=== PATIENT | male | born 1980 | race Caucasian/White ===

== ENCOUNTER 2022-09-11 19:40 | Emergency (ER) | payer BC ==
[2022-09-11 20:08] LABS: BASOPHILS # (AUTO) 0.1 10^3/uL (0.0-0.1); BASOPHILS % (AUTO) 0.6 %; EOSINOPHILS # (AUTO) 0.2 10^3/uL (0.0-0.7); EOSINOPHILS % (AUTO) 2.1 %; HCT - HEMATOCRIT 50.9 % (42.0-52.0); HGB - HEMOGLOBIN 17.6 g/dL (14.0-18.0); LYMPHOCYTES # (AUTO) 1.6 10^3/uL (1.5-3.5); LYMPHOCYTES % (AUTO) 17.2 %; MEAN CORPUSCULAR HEMOGLOBIN 30.7 pg (27.0-31.0); MEAN CORPUSCULAR HGB CONC 34.6 g/dL (32.0-36.0); MEAN CORPUSCULAR VOLUME 88.8 fL (80.0-94.0); MEAN PLATELET VOLUME 9.9 fL (7.4-11.4); MONOCYTES # (AUTO) 0.7 10^3/uL (0.0-1.0); NEUTROPHILS # (AUTO) 6.7 10^3/uL (1.5-6.6); NEUTROPHILS % (AUTO) 72.9 %; PLT - PLATELET COUNT 292 10^3/uL (130-450); RED BLOOD COUNT 5.73 10^6/uL (4.70-6.10); RED CELL DISTRIBUTION WIDTH 13.1 % (12.0-15.0); WHITE BLOOD COUNT 9.3 x10^3/uL (4.8-10.8)
--- NOTE | 2022-09-11 20:13 | XRAY Report ---
PROCEDURE: Chest 1 View X-Ray INDICATIONS: Chest Pain TECHNIQUE: One view of the chest was acquired. COMPARISON: None. FINDINGS: Surgical changes and devices: Post-ORIF changes in right clavicular shaft are seen. Lungs and pleura: No pleural effusions or pneumothorax. Lungs are clear. Mediastinum: Mediastinal contours appear normal. Heart size is normal. Bones and chest wall: No suspicious bony lesions. Overlying soft tissues appear unremarkable. IMPRESSION: No acute cardiopulmonary process. Reviewed by: Diego Klein MD on 09/11/2022 8:12 PM PDT Approved by: Diego Klein MD on 09/11/2022 8:12 PM PDT Station ID: [id number]
[2022-09-11 20:34] LABS: ALBUMIN 4.3 g/dL (3.2-5.5); ALBUMIN/GLOBULIN RATIO 1.5 (1.0-2.2); BILIRUBIN,TOTAL 1.3 mg/dL (0.2-1.0); CALCIUM 9.8 mg/dL (8.5-10.3); POTASSIUM 4.3 mmol/L (3.5-5.0); TOTAL PROTEIN 7.2 g/dL (6.7-8.2)
[2022-09-11] MEDS ORDERED: ALPRAZolam 0.25 MG TABLET PO STA (20:34)
[2022-09-11] MEDS ORDERED: busPIRone 5 MG TABLET PO ONE (21:00)
--- NOTE | 2022-09-11 21:08 | ED Physician Documentation ---
PD HPI CHEST PAIN - Stated complaint Stated Complaint: CHEST PX/ANXIETY - Chief complaint Chief Complaint: Cardiac - History obtained from History obtained from: Patient - Additional information Additional information: The patient comes to the emergency department chief complaint of anxiety and chest tightness. He states its been going on on and off for about the past year but that he gets episodes where things seem to get worse. He states this usually is when he is not able to sleep at night. He states he will try to sleep and then he will just keep waking up out of breath as if he has been h olding his breath. States he feels as though he is constantly having an adrenaline bai. Patient states he is under a lot of stress at his job. 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 His home base is in [place]. He states he will be here about another week and then he is supposed to go back to [place] he thinks. He is supposed to go to [place] after that. He states he has not really had the opportunity to establish with a primary care physician because he is always gone. He lives in the [facility]. The patient states that he has not had any symptoms with exertion. He states also that when he is at work, he does not really get any symptoms at all because he is busy. However, and when he is off work and especially when he is just by himself, he begins to feel anxious. At this time, he will feel as though his heart rate is going up and his chest gets tight. He sometimes gets numbness in his arms. The patient states that he starts to feel overwhelmed with everything that is stressing him out and that he will have symptoms like that on and off for a couple of days. Once he is able to get sleep again, and the symptoms seem to improve. Patient does have a significant other who lives in [place] and he cites some relationship stress as well. The patient has a history of alcoholism and heavy smoking although he has cut back on both alcohol and smoking. He states he has a beer and a cigarette maybe once a week but that he is very involved with [employer] Anonymous and this helps him a lot. The patient states that he has a history of pretension and was on lisinopril for this but he self DC'd for unclear reasons. No history of diabetes or known heart issues. His only family history of coronary artery disease is an uncle who at 42 of a "massive heart attack". He does note that his uncle had diabetes, hypertension, and was a heavy smoker and drinker and was chronically under a lot of stress with his job. Patient denies any shortness of breath with exertion. He does state that when he gets really anxious sometimes he will start vomiting. No other complaints at this time. PD PAST MEDICAL HISTORY - Past Medical History Past Medical History: Yes Cardiovascular: Hypertension Respiratory: None Neuro: None Endocrine/Autoimmune: None GI: None : None HEENT: None Psych: Anxiety Musculoskeletal: None Derm: None - Past Surgical History Past Surgical History: Yes General: Other Ortho: Other - Present Medications Home Medications: Ambulatory Orders Medication Instructions Recorded Confirmed busPIRone [Buspar] 10 mg PO BID #120 tablet 09/11/22 - Allergies Allergies/Adverse Reactions: Allergies Allergy/AdvReac Type Severity Reaction Status Date / Time No Known Drug Allergies Allergy Verified 09/11/22 19:51 - Social History Does the pt smoke?: Yes Smoking Status: Current every day smoker Does the pt drink ETOH?: Yes Does the pt have substance abuse?: No - Immunizations Immunizations: TDAP >10years/unknown - POLST Patient has POLST: No PD ED PE NORMAL - Vitals Vital signs reviewed: Yes - General General: Alert and oriented X 3, Well developed/nourished, Other (No distress but the patient does appear mildly anxious.) - HEENT HEENT: Atraumatic, PERRL, EOMI, Moist mucous membranes - Neck Neck: Supple, no meningeal sign - Cardiac Cardiac: RRR, No murmur, Strong equal pulses - Respiratory Respiratory: No respiratory distress, Clear bilaterally - Abdomen Abdomen: Soft, Non tender, Non distended - Derm Derm: Normal color, Warm and dry, No rash - Extremities Extremities: No deformity, No edema, No calf tenderness / cord - Neuro Neuro: Alert and oriented X 3 - Psych Psych: Normal mood, Normal affect Results - Vitals Vitals: Vital Signs - 24 hr 09/11/22 09/11/22 09/11/22 19:48 21:12 22:17 Temperature 36.4 C L 36.6 C Heart Rate 82 70 80 Respiratory 18 15 16 Rate Blood Pressure 150/113 H 139/104 H 137/99 H O2 Saturation 96 95 95 09/11/22 09/11/22 22:46 23:38 Temperature 36.2 C L Heart Rate 85 78 Respiratory 17 19 Rate Blood Pressure 140/104 H 136/97 H O2 Saturation 96 95 Oxygen O2 Source Room air - EKG (time done) 1948 EKG releavant findings:: EKG personally interpreted by author of this note. Relevant findings are: Rate: Rate (enter#) (78) [place]: Normal Intervals: Normal GA QRS: Normal Ischemia: ST elevation c/w repol Compare to prior EKG: Old EKG unavailable Computer interpretation: Agree with computer - Labs Labs: Laboratory Tests 09/11/22 09/11/22 09/11/22 19:57 19:57 19:57 WBC 9.3 RBC 5.73 Hgb 17.6 Hct 50.9 MCV 88.8 MCH 30.7 MCHC 34.6 RDW 13.1 Plt Count 292 MPV 9.9 Neut # (Auto) 6.7 H Lymph # (Auto) 1.6 [place] # (Auto) 0.7 Eos # (Auto) 0.2 Baso # (Auto) 0.1 Absolute Nucleated RBC 0.00 Nucleated RBC % 0.0 Sodium 136 Potassium 4.3 Chloride 102 Carbon Dioxide 27 Anion Gap 7.0 BUN 10 Creatinine 1.0 Estimated GFR (MDRD) 82 L Glucose 125 H Calcium 9.8 Total Bilirubin 1.3 H AST 31 ALT 30 Alkaline Phosphatase 79 Troponin I High Sens 2.4 Total Protein 7.2 Albumin 4.3 Globulin 2.9 Albumin/Globulin Ratio 1.5 Lipase 43 09/11/22 22:01 WBC RBC Hgb Hct MCV MCH MCHC RDW Plt Count MPV Neut # (Auto) Lymph # (Auto) [place] # (Auto) Eos # (Auto) Baso # (Auto) Absolute Nucleated RBC Nucleated RBC % Sodium Potassium Chloride Carbon Dioxide Anion Gap BUN Creatinine Estimated GFR (MDRD) Glucose Calcium Total Bilirubin AST ALT Alkaline Phosphatase Troponin I High Sens < 2.3 L Total Protein Albumin Globulin Albumin/Globulin Ratio Lipase PD Medical Decision Making - ED course Complexity details: reviewed results, re-evaluated patient, considered differential, d/w patient ED course: The patient was worked up with labs, EKG, and chest x-ray. Labs were ordered and reviewed by me and included a CBC, ER abdominal panel, and troponin with repeat at 2 hours. All of these were unremarkable. The patient was feeling better after BuSpar and a very small dose of Xanax and he requested BuSpar for at home. I have given him a prescription for this. The patient is advised that it is very important that he set up primary care as soon as he gets home to [place]. He states he will only be here for another week, so it is not of much utility to refer him to primary care here. We have discussed home management of symptoms as well as the usual indications for return. Departure - Departure Disposition: Home, Self Care Clinical Impression: Anxiety Chest pain Qualifiers: Chest pain type: unspecified Qualified Code(s): R07.9 - Chest pain, unspecified Condition: Stable Instructions: ED Chest Pain Atypical Unkn Cause, ED Panic Attack Prescriptions: busPIRone [Buspar] 10 mg PO BID #120 tablet Comments: Your labs, EKG, and chest x-ray all look good. There is no evidence of heart attack or other emergent condition today. Most likely, your symptoms are due to anxiety and panic disorder, but it is very important that you establish with a primary doctor upon your soon return to [place]. You have been started on buspirone for your anxiety and a prescription for this has been electronically transmitted to the [facility] pharmacy in [place]. However, you should follow-up with primary care to be sure this is the best option for you to be on at this time. If you develop severe chest pain and shortness of breath that is unremitting with that seems in any way worse than usual, please return to the emergency department for reevaluation. Discharge Date/Time: 09/11/22 23:48
[2022-09-11 23:40] VITALS: BP 136/97
== END 2022-09-11 23:48 | disposition home or self-care (01) ==
LOC: ED 19:40
DX: F41.9 Anxiety disorder, unspecified (principal); R07.9 Chest pain, unspecified; F17.200 Nicotine dependence, unspecified, uncomplicated
CPT/HCPCS: 36415; 71045; 80053; 83690; 84484; 85025; 93005; 99283; 99284; A9270